=== PATIENT | female | born 1960 | race Caucasian/White ===

== ENCOUNTER → 2020-09-05 17:17 | Outpatient (CLI) | payer BC, SELFPAY ==
--- NOTE | ~2020-09-05 | MR_ITS ---
EXAMINATION: MR knee LT wo con DATE: 09/05/2020 18:28 INDICATION: Meniscal tear presenting with left knee pain and swelling TECHNIQUE: Magnetic resonance imaging (MRI) of the left knee was performed without intravenous contra st. Sequences included coronal PD-weighted FSE, coronal PD-weighted FS FSE, sagittal T2-weighted FSE , sagittal PD-weighted FS FSE and axial PD weighted fat saturated FSE. COMPARISON: None. FINDINGS: Medial compartment: Complex medial meniscal tear with longitudinal horizontal tear plane extending to the inferior articu lar surface of the posterior horn and with secondary likely parrot beak configuration tear at the med ial meniscal body. Partial-thickness chondral fissuring which appears to involve less than 50% the ca rtilage thickness at the anterior weightbearing medial femoral condyle. Deeper chondral ulceration an d fissuring with underlying cortical irregularity, subarticular edema and suggestion of developing cy stic change extending along a sagittally oriented band approximately 2 cm craniocaudal and 1 cm media l collateral at the posterior weightbearing medial femoral condyle. Lateral compartment: Lateral meniscus is normal. Articular cartilage is normal. Patellofemoral compartment: Full-thickness chondral fissuring with minimal underlying subarticular edema at the medial patellar f acet. Deep chondral fissuring and underlying cortical irregularity with small central subchondral ost eophyte at the central aspect of the medial trochlea. Ligaments and tendons: Anterior cruciate ligament appears intact with normally oriented taut-appearing ligament fibers but w ith increased intrasubstance signal resulting in celery stalk appearance consistent with mucoid degen eration. The posterior cruciate ligament is normal. The medial collateral ligament and fibular collat eral ligament complex are normal. The extensor mechanism is normal. The visualized medial and lateral hamstring tendons as well as the iliotibial band are normal. Fluid: Small knee joint effusion. No loose osteochondral bodies identified. Small Garcia's cyst. Osseous/other: Nondisplaced transverse fracture extending across the metaphyseal region of the proximal tibia near t he level of the diaphyseal scar. Fracture is mildly comminuted with an additional coronally oriented fracture plane extending cephalad from the anterior side of the fracture to the cephalad cortex along the anterior rim of the articular surface of the lateral tibial plateau without evident involvement of the cartilage or articular cortex. The fracture plane also remains anterior to the footplate of th e anterior cruciate ligament and anterior horn of the lateral meniscus. The fracture plane does howev er appear to separate the footplate of the anterior horn of the medial meniscus from the larger artic ular fragment. There is an additional nondisplaced intra-articular fracture line involving the anteri or corner of the head of the fibula which appears to lie anterior and medial to the footplate of the fibular collateral ligament complex. No pathologic marrow replacing process. IMPRESSION: 1. Nondisplaced fractures of the proximal tibia and proximal fibula as detailed above. 2. Complex medial meniscal tear. 3. 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 4. Small knee joint effusion and small Garcia's cyst. Reviewed, dictated and finalized at location B.
== END ==
DX: M25.462 Effusion, left knee (principal); M17.12 Unilateral primary osteoarthritis, left knee; S83.232A Complex tear of medial meniscus, current injury, left knee, initial encounter; X58.XXXA Exposure to other specified factors, initial encounter
CPT/HCPCS: 73721